=== PATIENT | male | born 2000 | race Two or more races ===

== ENCOUNTER 2024-02-18 14:51 | Emergency (ER) | payer BC ==
[~2024-02-18] VITALS: Ht 172.7 cm; Wt 83.9 kg
[2024-02-18] MEDS ORDERED: ONDANSETRON HCL 2 MG/ML VIAL IV ONE (16:45)
[2024-02-18] MEDS ORDERED: ONDANSETRON HCL 2 MG/ML VIAL ONE (16:47)
[2024-02-18 17:26] LABS: HEMATOCRIT 47.4 % (39.0-48.0); HEMOGLOBIN 16.6 g/dL (13-16.00); MEAN CELL VOLUME 92.6 fL (80.0-100.00); MEAN CORPUSCULAR HEMOGLOBIN 32.4 pg (27.00-32.0); RED BLOOD COUNT 5.13 M/uL (4.00-6.00)
[2024-02-18 17:27] LABS: PLATELET COUNT 126 K/uL (150-450)
[2024-02-18] MEDS ORDERED: KETOROLAC TROMETHAMINE 60 MG VIAL IM ONE (18:00)
[2024-02-18] MEDS ORDERED: A/F PAIN RELIE500 MG PO (18:56)
[2024-02-18] MEDS ORDERED: GILTUSS COUGH-118 M1 PO (18:56)
== END 2024-02-18 20:11 | disposition home or self-care (01) ==
LOC: ER 14:54
PROVIDERS: Preventive Medicine Public Health & General Preventive Medicine
DX: B34.9 Viral infection, unspecified (principal); J00 Acute nasopharyngitis [common cold]; Z20.822 Contact with and (suspected) exposure to COVID-19